=== PATIENT | female | born 1955 | race African-American/Black ===

== ENCOUNTER 2019-04-13 14:06 | Emergency (ER) | payer MEDICAID ==
[~2019-04-13] VITALS: Ht 162.6 cm; Wt 68.0 kg
[2019-04-13 14:20] VITALS: BP 178/80
== END 2019-04-13 17:43 | disposition left against medical advice (07) ==
LOC: ER 14:32
DX: R06.02 Shortness of breath (principal); Z53.21 Procedure and treatment not carried out due to patient leaving prior to being seen by health care provider